=== PATIENT | female | born 1935 | race Caucasian/White ===

== ENCOUNTER → 2018-08-22 | Outpatient (CLI) | payer MEDICARE, OTHER ==
[~2018-08-22] MED LIST: ASPIRIN 32325 MG/TAB PO; BACTRIM DS 8001 TAB PO; BETAPACE 80MG80 MG PO; BETAPACE AF80 MG/TA1 PO; DIFLUCAN 100MG100 MG PO; DOXYCYCLINE 10100 MG PO; DYAZIDE 25 MG-31 CAP PO; ELIQUIS 5MG PO; FLONASEALLERGY NS; KLOR-CON M2020 MEQ PO; LOTENSIN40 MG PO; NORVASC 5MG5 MG/TAB PO; PRAVACHOL 20MG20 MG PO; PREDNISONE20 MG PO; REFRESH 1 ML1 ML OP; RESTASIS0.05% OU; TOPROL XL 25MG25 MG PO; TRIAMTERENE; ZITHROMAX500 M2 PO
== END ==
LOC: MC.RAD 07-21 10:45
DX: Z12.31 Encounter for screening mammogram for malignant neoplasm of breast (principal)

== ENCOUNTER 2019-04-12 07:24 | Emergency (ER) | payer MEDICARE, OTHER ==
[~2019-04-12] VITALS: Ht 157.5 cm; Wt 63.6 kg
[2019-04-12 07:31] VITALS: TEMP 97.8
[2019-04-12 07:50] LABS: BASO # 0.1 (0.0-0.2); BASO % 0.6 % (0.0-2.0); EOS # 0.4 (0.0-0.7); EOS % 3.9 % (0-4.0); GRAN # 6.2 (1.4-6.5); GRAN % 63.8 % (42.2-75.2); HEMATOCRIT 45.3 % (37.0-47.0); HEMOGLOBIN 15.1 g/dl (12.5-16.0); LYMPH # 2.3 (1.2-3.4); LYMPH % 23.2 % (20.0-51.0); MEAN CELL VOLUME 91 fl (80.0-100.0); MEAN CORPUSCULAR HEMOGLOBIN 30 pg (27.0-31.0); MEAN CORPUSCULAR HGB CONC 33 g/dl (33.0-37.0); MEAN PLATELET VOLUME 9.4 fl (7.4-10.4); MONO # 0.8 (0.1-0.6); MONO % 8.3 % (1.7-9.3); PLATELET COUNT 222 K/mm3 (130-400); RED BLOOD COUNT 4.96 M/mm3 (4.10-5.30); REDCELL DISTRIBUTION WIDTH-CV 12.2 % (11.5-14.5)
[2019-04-12 07:53] LABS: INR 1.4 (0.8-3.0); PROTHROMBIN TIME 16.2 SECONDS (9.7-12.8)
[2019-04-12 07:56] LABS: PARTIAL THROMBOPLASTIN TIME 38.7 SECONDS (26.0-37.0)
[2019-04-12 08:05] LABS: ALANINE AMINOTRANSFERASE 14 U/L (9-52); ALBUMIN 4.4 gm/dL (3.5-5.0); ALKALINE PHOSPHATASE 91 U/L (50-136); ANION GAP 6 mmol/L (7-16); AST,SGOT 27 U/L (15-37); BILIRUBIN,TOTAL 0.7 mg/dL (0.0-1.0); BLOOD UREA NITROGEN 20 mg/dL (7-17); CALCIUM 9.6 mg/dL (8.4-10.2); CARBON DIOXIDE 28 mmol/L (22-30); CHLORIDE 109 mmol/L (98-107); CREATININE, serum 0.78 (0.52-1.25); GLUCOSE 107 mg/dL (74-106); SODIUM 143 mmol/L (137-145); TOTAL PROTEIN 8.1 gm/dL (6.4-8.2)
[2019-04-12 08:19] LABS: TROPONIN-I < 0.012 ng/mL (0.000-0.035)
[2019-04-12 11:20] VITALS: BP 150/73; PULSE 52
== END 2019-04-12 11:36 | disposition home or self-care (01) ==
LOC: COL.ER 07:24 → MEDICAL 09:38 → COL.ER 11:36
PROVIDERS: Family Medicine
DX: I48.91 Unspecified atrial fibrillation (principal); Z79.01 Long term (current) use of anticoagulants; Z79.51 Long term (current) use of inhaled steroids
CPT/HCPCS: J2704; J7030

== ENCOUNTER 2023-03-02 18:30 | Inpatient (IN) | payer MEDICARE, OTHER ==
[~2023-03-02] VITALS: Ht 157.5 cm; Wt 61.6 kg
[~2023-03-02 18:30] MED LIST changes: +NORCO 325 MG-51 TAB PO
[2023-03-02 18:48] LABS: BASO # 0.1 K/mm3 (0.0-0.2); BASO % 1.1 % (0.0-2.0); EOS # 0.3 K/mm3 (0.0-0.7); EOS % 3.6 % (0.0-4.0); GRAN # 4.9 K/mm3 (1.4-6.5); GRAN % 70.5 % (42.2-75.2); HEMATOCRIT 41.1 % (37.0-47.0); HEMOGLOBIN 13.6 g/dl (12.5-16.0); LYMPH # 1.1 K/mm3 (1.2-3.4); LYMPH % 15.4 % (20.0-51.0); MEAN CELL VOLUME 92 fl (80.0-100.0); MEAN CORPUSCULAR HEMOGLOBIN 31 pg (27-31); MEAN CORPUSCULAR HGB CONC 33 g/dl (33.0-37.0); MEAN PLATELET VOLUME 8.9 fl (7.4-10.4); MONO # 0.6 K/mm3 (0.1-0.6); MONO % 9.1 % (1.7-9.3); PLATELET COUNT 276 K/mm3 (130-400); RED BLOOD COUNT 4.45 M/mm3 (4.10-5.30); REDCELL DISTRIBUTION WIDTH-CV 12.6 % (11.5-14.5)
[2023-03-02 19:04] LABS: ALBUMIN 3.2 gm/dL (3.4-4.8); BILIRUBIN,TOTAL 0.4 mg/dL (0.2-1.2); CALCIUM 10.5 mg/dL (8.4-10.2); CREATININE, serum 0.87 mg/dL (0.57-1.11); POTASSIUM 3.8 mmol/L (3.5-4.5)
[2023-03-02 19:13] LABS: TROPONIN-I 0.329 ng/mL (0.00-0.033)
[2023-03-02] MEDS ORDERED: ASPIRIN 81M81 MG/TA2 PO (19:43)
[2023-03-02] MEDS ORDERED: NEURONTIN100 MG/CAP PO (19:44)
[2023-03-02] MEDS ORDERED: NEURONTIN300 MG/CAP PO (19:44)
[2023-03-02] MEDS ORDERED: HYPERSAL IH (19:45)
[2023-03-02] MEDS ORDERED: VITAMIN D31000 I1 PO (19:45)
[2023-03-02 20:56] VITALS: BP 158/85; PULSE 69; TEMP 97.5
[2023-03-02 21:00] LABS: INR 1.4 (0.8-3.0); PROTHROMBIN TIME 15.4 SECONDS (9.7-12.8)
[2023-03-02 21:02] LABS: PARTIAL THROMBOPLASTIN TIME 35.6 SECONDS (26.0-37.0)
[2023-03-02 21:15] VITALS: BP_SYST 158
[2023-03-02 23:02] VITALS: BP 142/75; PULSE 66; TEMP 97.5
[2023-03-03] VITALS (133 sets, daily range): BP systolic 102–142; BP diastolic 58–85; PULSE 57–70; TEMP 97.4–98.3; O2SAT 91–97
[2023-03-03 05:02] LABS: BASO # 0.1 K/mm3 (0.0-0.2); BASO % 0.8 % (0.0-2.0); EOS # 0.3 K/mm3 (0.0-0.7); EOS % 4.7 % (0.0-4.0); GRAN # 3.4 K/mm3 (1.4-6.5); GRAN % 50.6 % (42.2-75.2); LYMPH % 29.9 % (20.0-51.0); MEAN CELL VOLUME 93 fl (80.0-100.0); MEAN CORPUSCULAR HGB CONC 32 g/dl (33.0-37.0); MEAN PLATELET VOLUME 9.3 fl (7.4-10.4); MONO # 0.9 K/mm3 (0.1-0.6); MONO % 13.7 % (1.7-9.3); PLATELET COUNT 236 K/mm3 (130-400); RED BLOOD COUNT 3.89 M/mm3 (4.10-5.30); REDCELL DISTRIBUTION WIDTH-CV 12.4 % (11.5-14.5)
[2023-03-03 05:11] LABS: HEMOGLOBIN 11.6 g/dl (12.5-16.0); MEAN CORPUSCULAR HEMOGLOBIN 30 pg (27-31)
--- NOTE | 2023-03-03 05:15 | NUR ---
PT ARRIVED TO THE MEDICAL FLOOR AROUND 2100HRS TO ROOM 314. PT A&O X 4; VSS FOR PT; O2 2L VIA NC. PT COMPLAINED OF CHEST PAIN. PT GIVEN NITROGLYCERIN. PT RE-EVALUATED DURING ADMISSIONS ASSESSMENT. PT STATED SHE JUST HAD A LITTLE BIT OF CHEST PAIN. PT GIVEN A SECOND NITROGLYCERIN PER REQUEST. PT FELT AFTER THE SECOND DOSE OF NITROGLYCERIN, ALL OF HER CHEST PAIN WAS RELIEVED AT THAT POINT. AROUND 0335HRS, PT AGAIN COMPLAINED OF "A BIT OF CHEST PAIN." PT GIVEN A THIRD DOSE OF NITROGLYCERIN. PT HAD NO FURTHER COMPLAINTS OF CHEST PAIN FOR THE REMAINER OF THE SHIFT. PT DENIED ALL OTHER FORMS OF PAIN, SOB, N,V,D OR DIZZINESS. ADMISSIONS ASSESSMENT AND MED REC COMPLETE. PT ORIENTED TO ROOM AND HOSPITAL POLICY. POC DISCUSSED WITH PT. PT VERBALIZED UNDERSTANDING. ALL QUESTIONS AND CONCERNS ADDRESSED. PT EXPRESS NO ADDITIONAL NEEDS AT THIS TIME. FALL PRECAUTIONS IN PLACE. BED ALARM ON. CALL LIGHT WITHIN REACH. NOTE: PT HAD TWO CRITICAL TROPONINS CALLED TO ME BY LAB (3HR 1.330 & 6HR 2.415). BOTH CRITICAL TROPONINS CALLED TO HOSPITALIST. WILL CONTINUE TO MONITOR.
[2023-03-03 05:21] LABS: CALCIUM 9.1 mg/dL (8.4-10.2); CHOLESTEROL RISK RATIO 3.5; CREATININE, serum 0.8 mg/dL (0.57-1.11); POTASSIUM 3.7 mmol/L (3.5-4.5)
--- NOTE | 2023-03-03 08:56 | NUR ---
PATIENT RESTING IN BED UPON ENTERING ROOM. MORNING MEDICATIONS ADMINISTERED WITH SIP OF WATER, PATIENT REMAINS NPO FOR CARDIOLOGY CONSULT. SHIFT ASSESSMENT COMPLETED. PATIENT IS REPORTING 3/10 CHEST PAIN RADIATING DOWN L SHOULDER. GIVEN A PRN NITRO TAB AND EKG ORDERED. PATIENT DENIES ANY OTHER NEEDS AT THIS TIME. CALL LIGHT WITHIN REACH, BED ALARMS IN PLACE, WILL CONTINUE TO MONITOR.
--- NOTE | 2023-03-03 10:05 | NUR ---
PATIENT STARTED ON HEPARIN GTT. PATIENT CONTINUES TO COMPLAIN OF CHEST PAIN AND REQUESTS A REPEAT DOSE OF NITRO. REPORT GIVEN TO NIRAV MILIAN IN ICU. WILL ESCORT PATIENT DOWN.
--- NOTE | 2023-03-03 10:21 | NUR ---
Arrived to the unit from the medical floor. Patient alert and oriented and in no distress upon arrival. Able to self transfer to the bed from the wheelchair without difficulty. Currenlty reporting 1/10 mid left chest pain with radiation to the left arm. Denies any shortness of air. Call light left within reach.
--- NOTE | 2023-03-03 12:06 | NUR ---
Patient transfered to ICU from Medical floor. Intake completed while in on medical floor. Patient provides that she lives in [facility] with son Zeb Sullivan who is also appointment as DPOA of . Patient provided that she utilizes a walker, independent with ADL's, and does not utilize HH services at this time. [facility]. DC plan is unknown at this time. SW will continue to follow. DC plan: unknown at this time.
--- NOTE | 2023-03-03 12:45 | NUR ---
Patient left with EMS; alert and oriented and in no distress with stable VS upon transfer.
== END 2023-03-03 12:45 | disposition short-term general hospital (02) | DRG 281 ==
LOC: COL.ER 18:30 → MEDICAL 19:41 → ICU 03-03 10:21
PROVIDERS: Internal Medicine; Personal Emergency Response Attendant; Physician Assistant; ADMIT Internal Medicine
DX: I21.4 Non-ST elevation (NSTEMI) myocardial infarction (principal); I48.19 Other persistent atrial fibrillation; I10 Essential (primary) hypertension; E78.5 Hyperlipidemia, unspecified; M19.90 Unspecified osteoarthritis, unspecified site; G62.9 Polyneuropathy, unspecified; Z79.01 Long term (current) use of anticoagulants
CPT/HCPCS: J1644; J1650; J2305